=== PATIENT | male | born 1955 | race Caucasian/White ===

== ENCOUNTER 2016-12-23 09:52 | Emergency (ER) | payer OTHER ==
[~2016-12-23] VITALS: Ht 182.9 cm; Wt 116.0 kg
[2016-12-23 09:54] VITALS: BP 168/92; PULSE 78; RESP 15; TEMP 97.7; O2SAT 98
[2016-12-23] MEDS ORDERED: AMLO5TAB2 PO (10:12)
[2016-12-23] MEDS ORDERED: FISHCAP4 PO (10:12)
[2016-12-23] MEDS ORDERED: ROSU20 PO (10:12)
[2016-12-23] MEDS ORDERED: ALPR.25 PO (10:12)
--- NOTE | 2016-12-23 10:21 | PD ---
HPI . 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 Patient says that he was diagnosed with a pyogenic granuloma approximately 3 weeks ago and [facility]. He says that he has been applying clean dressings , but admits to playing golf and using his finger quite frequently. He admits to bleeding and knows this is normal, however he says that today he thinks his finger had a smell to it. He did not see any type of purulent drainage. There is no redness. He decided to come to the emergency department because he does not want to be told that he cannot have surgery on Sunday for removal. He denies any fever or chills. He denies any drug allergies. PFSH Past Medical History Anxiety: Yes High Cholesterol: Yes Hypertension: Yes Social History Tobacco Use: No Substance Use: No Allergies-Medications Reported Meds & Prescriptions Reported Meds & Active Scripts Active Bactroban Topical (Mupirocin) 2% Oint 1 Appl TOPICAL BID Reported Crestor (Rosuvastatin Calcium) 20 Mg Tab 20 Mg PO DAILY Xanax (Alprazolam) 0.25 Mg Tab 0.25 Mg PO HS PRN Fish Oil + D3 (Fish Oil-Cholecalciferol) 1,200-1,000 Mg-Unit Cap 1 Cap PO DAILY Amlodipine (Amlodipine Besylate) 5 Mg Tab 5 Mg PO DAILY Review of Systems General / Constitutional: No: Fever Eyes: No: Visual changes HENT: No: Headaches Cardiovascular: No: Chest Pain or Discomfort Respiratory: No: Shortness of Breath Gastrointestinal: No: Abdominal Pain Genitourinary: No: Dysuria Musculoskeletal: No: Pain Skin: Positive Other (finger odor), No Rash Neurologic: No: Weakness Psychiatric: No: Depression Endocrine: No: Polydipsia Hematologic/Lymphatic: No: Easy Bruising Physical Exam Narrative GENERAL: AAO x 3, no acute distress, Well-nourished, well-developed patient. SKIN: Warm and dry. No visible rashes or bruising. Right middle finger medial aspect with a 1 cm pyogenic granuloma present. There is no surrounding erythema or edema. There is no purulent drainage. There is no foul order. Capillary refill is normal. HEAD: Normocephalic and atraumatic. EYES: No scleral icterus. No injection or drainage. ENT: No nasal drainage noted. Airway patent. NECK: Supple, trachea midline. No JVD. CARDIOVASCULAR: Regular rate and rhythm without murmurs, gallops, or rubs. RESPIRATORY: Breath sounds equal bilaterally. No accessory muscle use. No rhonchi or rales. GASTROINTESTINAL: Visual inspection is normal EXTREMITIES: No cyanosis or edema. Right hand range of motion in digits is normal BACK: Nontender without obvious deformity. No CVA tenderness. PSYCH: AAO x 3, normal affect. 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 Patient says that he was diagnosed with a pyogenic granuloma approximately 3 weeks ago and [facility]. He says that he has been applying clean dressings , but admits to playing golf and using his finger quite frequently. He admits to bleeding and knows this is normal, however he says that today he thinks his finger had a smell to it. He did not see any type of purulent drainage. There is no redness. He decided to come to the emergency department because he does not want to be told that he cannot have surgery on Sunday for removal. He denies any fever or chills. Patient seen and examined. He does have a pyogenic granuloma to the right middle finger. It does not appear infected. I will go ahead and provide topical Bactroban. I've explained to him that he will need to clean the finger and apply clean dressings daily. A clean dressing was applied in the ED. He will need follow-up for surgical removal. Patient verbalized understanding of instructions, questions were answered, and thanked me for their care. I advised them if their condition worsens, please return to the nearest emergency room for further care. Diagnosis Primary Impression: Pyogenic granuloma Patient Instructions: General Instructions Additional Instructions: Please return to emergency department if your symptoms return or worsen. Follow up with your primary care provider. Take medications as prescribed. Wash with soap and water daily. Apply antibiotic ointment twice a day. Keep dressings clean and dry. Med/Other Pt SpecificInfo: Prescription(s) given Scripts Mupirocin Topical (Bactroban Topical)2% Oint1 Appl TOPICAL BID #1 TUBE Ref 0 Prov:Brad Craft MD 12/23/16 Disposition: 01 DISCHARGE HOME Condition: Stable Lisa Orta Dec 23, 2016 10:21
[2016-12-23] MEDS ORDERED: BACT2OIN TOPICAL (10:26)
== END 2016-12-23 10:45 | disposition home or self-care (01) ==
LOC: NEPK 09:52
DX: L98.0 Pyogenic granuloma (principal); I10 Essential (primary) hypertension; E78.5 Hyperlipidemia, unspecified; Z86.59 Personal history of other mental and behavioral disorders
CPT/HCPCS: 99282